=== PATIENT | male | born 1950 | race Caucasian/White ===

== ENCOUNTER 2025-01-13 03:46 | Observation (INO) | payer MEDICARE, SELFPAY ==
[2025-01-12 22:00] VITALS: BP 160/95
[2025-01-12 22:50] VITALS: BP 145/81
[2025-01-12 22:57] VITALS: BMI 24.4
[2025-01-12 23:00] VITALS: BP 122/80
[2025-01-12 23:19] LABS: Hematocrit 39.7 % (39.0-52.0); Hemoglobin 13.7 g/dL (13.0-18.0); Mean Corp Hgb Conc. 34.5 g/dL (33.0-37.0); Mean Corpuscular Volume 93.2 fL (80.0-94.0); Nucleated Red Blood Cells % 0 % (-); Platelet Count 178 10^3/uL (130-400); Red Cell Dist. Width 12.5 % (11.5-14.5)
--- NOTE | 2025-01-12 23:24 | ED.GENMED ---
History of Present Illness
General
Chief Complaint: Cardiac Symptoms
Source: patient
Exam Limitations: none
Time Seen by Provider: 01/12/25 23:00
Nursing documentation reviewed up to this point in time: agreed with
History of Present Illness
History of Present Illness:
The patient is a 74-year-old male with a history of hypertension, hyperlipidemia, who presents with palpitations that began tonight around 8:30 PM while watching a movie. He describes the sensation as a rapid and irregular heartbeat with an
estimated rate of 140 beats per minute, noted on his personal blood pressure monitor, which also recorded a blood pressure of 128/80 mmHg. The episode lasted until his arrival at the emergency department, where it began to slow down. This is the
second occurrence, with the first episode happening about six months ago during physical exertion on a hot day. The patient reports mild chest discomfort, described as central and not radiating, without associated symptoms of dizziness,
lightheadedness, nausea, or diaphoresis. No significant shortness of breath or other respiratory symptoms were noted.
He admits to mild seasonal allergies which are common this time of the year but no significant cough no shortness of breath, no fever no chills. Has not been taking anything for seasonal allergies.
Specifically, denies antihistamine nor decongestant use.
No recent travel. No leg pain or swelling. Weight has been stable.
His daily medications include: Metoprolol succinate 100 mg daily, valsartan HCTZ 80/12.5 once daily. He had been maintained on atorvastatin 20 mg daily but stopped this a few months ago and transitioned to red yeast rice. He is scheduled for
fasting blood work next week with his PCP, Dr. Butcher. He stopped atorvastatin due to intermittent joint aches. He admits that joint aches persist despite stopping atorvastatin. He believes he has osteoarthritis.
He denies drug use. Non-smoker. He does drink alcohol, a couple of beers per day. Denies increased alcohol consumption.
Past History
Past History
ED Past Medical History: HTN and Hypercholesterolemia
ED Past Surgical History: Other (Hernia repair; cataract extraction)
Social History
Tobacco: Non-smoker
Alcohol: Daily (A couple of beers per day)
Drug: None
Personal:
Living: with family
Employment: Retired
Family History
Family History: Other (Father with history of stroke in his 70s. Mother with history of 'heart issues' but unsure as to specifics.)
Phy Exam
Physical Exam
Physical Exam:
GENERAL: 74-year-old gentleman appears his stated age, bright and alert, pleasant, easily communicative and in no acute distress. Accompanied by his son.
EYE: anicteric
NECK: Supple, nontender, no meningismus, no significant adenopathy. No JVD.
ENT: oral mucosa is moist. No rhinorrhea.
CARDIAC: Regular rate and rhythm. no murmur. No rub.
LUNGS: Clear breath sounds bilaterally, no acute respiratory distress, no wheezes/rales/rhonchi
ABDOMEN: Soft, nondistended, without focal tenderness, no r/g, no cvat. normoactive BS.
NEUROLOGICAL: Alert and oriented x3, no focal neuro deficits. Gait is glover and steady.
SKIN: Warm and dry, normal color, skin intact. No rash.
MUSCULOSKELETAL: No C/C/E. peripheral pulses are full and equal b/l. No palpable tenderness.
PSYCH: Normal and appropriate interaction.
Scores
Heart Score for Chest Pain Patients
STEMI patient?: No
History: Slightly or Non-Suspicious
ECG: Normal
Age: >/= 65 years
Risk Factors: 1 or 2 Risk Factors
Troponin: >1 - <3 x Normal Limit
Heart Score for Chest Pain Patients: 4
Heart Score Risk: 20.3% MACE over next 6 weeks
Course
Orders/Labs/Results
Orders:
Orders
01/12/25 22:03
ECG [Electrocardiogram (*1)] Urgent
Reason for Study: Tachycardia
01/12/25 22:04
EKG- Treatment ONCE
01/12/25 23:08
Complete Blood Count/With Diff Urgent
Comprehensive Metabolic Panel Urgent
TSH Reflex To Free T4 Urgent
Troponin I Urgent
01/13/25 00:25
EKG- Treatment ONCE
01/13/25 00:26
Potassium Chloride [KCl] 20 meq PO NOW STA
01/13/25 01:00
Electrocardiogram (*1) Urgent
Reason for Study: Chest Pain
01/13/25 01:01
Troponin I Urgent
Abnormal Lab Results
01/12/25 01/13/25
23:08 01:01
RBC 4.26 L 10^6/uL
(4.70-6.10)
MCH 32.2 H pg
(27.0-31.0)
Monocytes % 9.7 H %
(1.7-9.3)
Eosinophils % 6.1 H %
(0-6)
Chloride 108 H mmol/L
(98-107)
BUN 24 H mg/dl
(9-20)
Glucose 135 H mg/dl
(70-99)
Troponin I 0.041 H* D ng/ml
Total Protein 6.1 L g/dl
(6.3-8.2)
01/12/25 23:08
01/12/25 23:08
Vital Signs
Initial and Last Documented VS:
Initial Vital Signs
Temp Pulse Resp BP Pulse Ox
98 F 100 20 160/95 97
01/12/25 22:00 01/12/25 22:00 01/12/25 22:00 01/12/25 22:00 01/12/25 22:00
Last Documented Vital Signs
Temp Pulse Resp BP Pulse Ox
98 F 74 16 145/87 96
01/12/25 22:00 01/13/25 01:45 01/13/25 01:45 01/13/25 01:00 01/13/25 01:45
MDM/Problems Addressed
Differential Diagnosis Includes:
The Differential Diagnosis includes, in no particular order and is not limited to:
1. Atrial fibrillation
2. Supraventricular tachycardia
3. Ventricular tachycardia
4. Hyperthyroidism
5. Anxiety-related palpitations
6. Electrolyte imbalance
7. Medication-induced tachycardia
8. Coronary artery disease
9. Congestive heart failure
10. Cardiomyopathy
MDM/Problems Addressed:
Acute:
- Palpitations
- Rapid heartbeat
- Chest discomfort
Chronic:
- Hypertension
- Hyperlipidemia
EKG upon arrival shows normal sinus rhythm in the 90's, no acute ST-T wave abnormalities. Unchanged from previous EKG 2019 save for heart rate has increased from 50 to 92.
Patient states his heart rate generally runs in the 60s.
During my initial evaluation, social welfare research worker continues to show normal sinus rhythm, initially in the 80s, drifting down to the 60s. No pauses nor arrhythmia noted.
I am concerned for an episode of tacky arrhythmia, perhaps an episode of A-fib which resolved just prior to arrival.
1. Continue cardiac monitoring, will check blood work including thyroid function and continue to monitor vital signs during the emergency department stay.
2. Refer the patient to a arabic linguist for further evaluation.
3. Will likely require echocardiogram and a continuous heart rhythm monitor (like a Holter or event monitor) to observe for arrhythmias.
4. Discuss with the patient the importance of controlling LDL cholesterol levels, aiming for a goal under 80 mg/dL, given the family history of cardiovascular disease.
*Pulse Oximetry
SaO2: 97
Oxygen Mode of Delivery: Room air
Patient hypoxic: no
*EKG
Interpreted by ED Provider?: Yes
Interpretation: normal
Comparison EKG: changes noted (Heart rate has increased from 52 to now 92)
Rate: normal
Rhythm: sinus
[place]: normal axis
Interval: normal interval
QRS Pattern: normal QRS
Ischemia: no ischemia
*Lead Atg Developer Interpretation
Rate: normal
Interpretation: normal
Rhythm: sinus
*Critical Care Note
Total Time (30-74mins, 75-104mins- exclusive of procedures): Not Applicable
Update Note
Update Note:
00:20
Patient remains asymptomatic.
Monitor shows normal sinus rhythm in the 60s with occasional PVC.
Labs thus far unremarkable save for borderline low potassium of 3.6.
Troponin 0.03.
With complaints of chest discomfort with palpitations/rapid heartbeat, must consider tachycardia/rate related anginal chest pain.
Will replete potassium with an oral dose of K. Dur.
Will continue social welfare research worker.
Will plan to repeat troponin and EKG at 1 AM. If trending up, we will plan to admit for continued cardiac monitoring and further cardiac evaluation.
01:00
Troponin trending up to now 0.041. As such, significant concern for ACS.
Will give aspirin, 325 mg chewable.
Monitor continues to show normal sinus rhythm with occasional PACs. No tacky arrhythmia. He remains chest pain-free.
Will plan to admit to hospitalist service for continued cardiac monitoring, continue to trend troponin. Cardiology consult in the a.m.
ED Attending Note
-
Portions of this chart may have been created with voice recognition software.� Occasional wrong word or��sound alike� substitutions may have occurred due to the inherent limitations of voice recognition software.
Discharge Plan
Departure
Patient Disposition: Admit
Date of Disposition: 01/13/25
Time of Disposition: 02:09
Admit to: Telemetry
Admit to doctor: Yomi
Presentation/result/management discussed w/ accepting MD/DO: Hospitalist
Condition: Fair
Discharge Problem:
Heart palpitations, chest pain r/o ACS, Elevated troponin
Prescriptions:
No Action
atorvastatin 10 MG tablet
10 mg PO DAILY
metoprolol succinate 100 MG tablet extended release 24 hr
100 mg PO DAILY
Referrals:
Reed Butcher MD [Family Provider, Family Practice]
Interventions
Interventions:
*Risk Screen - Suicide Last Done: 01/12/25 22:51
*General Assessment Last Done: 01/12/25 22:00
*ED- Fall Risk Assessment Last Done: 01/12/25 22:51
*ED COVID-19 Vaccine History Last Done: 01/12/25 22:51
*ED Influenza Vaccine History Last Done: 01/12/25 22:51
ED- Pulmonary Assessment Last Done: 01/12/25 22:51
ED- Cardiac Assessment Last Done: 01/12/25 22:51
Discharge Date and Time
Print Language: ICELANDIC
[2025-01-12 23:41] LABS: ALT (SGPT) 24 U/L (0-50); AST (SGOT) 34 U/L (17-59); Albumin 4.1 g/dl (3.5-5.0); Alkaline Phosphatase 63 U/L (38-126); Blood Urea Nitrogen 24 mg/dl (9-20); Calcium 9.1 mg/dl (8.4-10.2); Carbon Dioxide 30 mmol/L (22-30); Chloride 108 mmol/L (98-107); Estimated Creatinine Clearance 81 ml/min; Glucose 135 mg/dl (70-99); Potassium 3.6 mmol/L (3.5-5.1); Sodium 143 mmol/L (135-145); Total Protein 6.1 g/dl (6.3-8.2); eGFR > 60.00
[2025-01-12 23:53] LABS: Troponin I 0.030 ng/ml
[2025-01-13] VITALS (12 sets, daily range): BP systolic 137–166; BP diastolic 69–87; PULSE 61–66; BMI 24.1
[2025-01-13] MEDS: KCL 20 MEQ PO (00:38)
[2025-01-13 02:00] LABS: Troponin I 0.041 ng/ml
[2025-01-13] MEDS: LOW STRENGTH ASPIRIN 324 MG PO (02:16)
--- NOTE | 2025-01-13 02:50 | HPS.HSE ---
Family Physician
-
Family Physician: Reed Butcher
Chief Complaint
-
Palpitations
History of Present Illness
Patient is a 74y M with PMH significant for hypertension who presents to ED complaining of palpitations. Patient states that he was sitting watching TV this evening when he noted racing heartbeat and an uncomfortable 'sensation' in his chest.
No SOB, N/V, diaphoresis, etc. He checked his BP at home - which he does regularly - and noted that his pulse read 148 bpm. He was evaluated by his daughter who is a nurse who confirmed tachycardia and reported an irregular pulse. He presented to
the ED for further evaluation and treatment. By the time patient arrived at the ED, his symptoms had resolved. He states that they lasted for about 1 1/2 - 2 hours total.
Patient reports similar episode about 6 months ago. This occurred during exertion and heat exposure and lasted only several minutes before resolving. He did not seek medical attention at that time.
At the time of my examination, patient is resting comfortably and has no complaints.
Medical History
Past Medical History
Past Medical History: Reports Other
Additional Past Medical History:
Hypertension
Past Surgical History: Reports Other
Additional Past Surgical History:
Hernia Repair
Cataracts
Vasectomy
Social History
Tobacco: Former Smoker (Quit smoking 40 years ago.)
Alcohol: Daily (1-2 beers daily)
Drug: None
Family History
Family History: Other (Father: CVA)
Allergies / Home Medications
Allergies reflects when Allergies were last updated in [employer].
Home Medications with original date entered in [employer]
Allergy/Medication List:
Allergies
Allergy/AdvReac Type Severity Reaction Status Date / Time
No Known Allergies Allergy Verified 01/12/25 22:00
Home Medications
metoprolol succinate 100 mg tablet,extended release 24 hr 100 mg PO DAILY 01/13/25
red yeast rice 600 mg capsule 600 mg PO DAILY 01/13/25
valsartan 80 mg-hydrochlorothiazide 12.5 mg tablet 1 tab PO DAILY 01/13/25
Review of Systems
-
History Source: Patient
A 12 point ROS was completed and negative except as noted: Yes
Constitutional: Denies Fever or Chills
Respiratory: Denies Cough or Trouble Breathing
Cardiac: Reports Chest Pain and Palpitations; Denies Diaphoresis or Syncope
Abdomen/GI: Denies Abdominal Pain, Nausea, Vomiting or Diarrhea
: Denies Dysuria or Flank Pain
Musculoskeletal: Denies Joint Pain or Edema
Neurological: Denies Dizzy or Headache
Psych: Denies Depression or Anxiety
Physical Exam
Vital Signs
Vital Signs
Temp Pulse Resp BP Pulse Ox
98 F 64 14 145/80 97
01/12/25 22:00 01/13/25 02:30 01/13/25 02:30 01/13/25 02:00 01/13/25 02:30
Physical Exam
General: Other (74y M in no distress.)
HEENT: Moist mucous membranes and PERRLA
Respiratory: Clear; No Wheezes, Rales or Rhonchi
Cardiac: S1/S2 and Regular Rhythm; No Murmur
GI: Soft, Non Tender, Non Distended and Normal Bowel Sounds
Musculoskeletal: No Clubbing, No Cyanosis and No Edema
Neuro: AO x 3
Laboratory Results
-
01/12/25 23:08
01/12/25 23:08
Laboratory Results
Total Bilirubin 0.4 mg/dl (0.2-1.3) 01/12/25 23:08
AST 34 U/L (17-59) 01/12/25 23:08
ALT 24 U/L (0-50) 01/12/25 23:08
Alkaline Phosphatase 63 U/L (38-126) 10/22/25 23:08
Troponin I 0.041 ng/ml H* D 01/13/25 01:01
Impression/Plan
-
A/P: Patient is a 74y M with PMH significant for hypertension who presents to ED complaining of chest discomfort and palpitations.
Palpitations
- Observe overnight for further evaluation and treatment.
- ? PA-Fib versus other SVT.
- Monitor on tele overnight.
- Continue usual Toprol dose for now.
- Cardiology evaluation for additional recommendations.
- May benefit from ambulatory monitoring if no arrhythmia noted during stay.
Abnormal Troponin - Unknown Type
- Suspect this is non-ischemic myocardial injury due to tachyarrhythmia.
- Cannot rule out ACS however given reported chest 'discomfort' as well.
- ASA daily for now.
- Follow troponin to peak.
- Cardiology evaluation as noted above.
Benign Hypertension
- Stable. Continue current med regimen.
DVT Prophylaxis: Lovenox
Code Status: Full
--- NOTE | 2025-01-13 04:48 | PTCARENOTE ---
Pt admitted from ED to room 2245 at this time, aaox3, denies cp, palpations or dizziness. SR on tele monitor, HR 60's. Trending trops q6hr, ortho VS obtained and documented, EKG obtained upon arrival on the unit. Pt updated on POC and oriented to
unit. Call light within reach.
[2025-01-13 04:56] LABS: Hematocrit 37.7 % (39.0-52.0); Hemoglobin 13.0 g/dL (13.0-18.0); Mean Corp Hgb Conc. 34.5 g/dL (33.0-37.0); Mean Corpuscular Volume 94.5 fL (80.0-94.0); Platelet Count 157 10^3/uL (130-400); Red Cell Dist. Width 12.3 % (11.5-14.5)
[2025-01-13 05:22] LABS: Blood Urea Nitrogen 26 mg/dl (9-20); Calcium 8.7 mg/dl (8.4-10.2); Carbon Dioxide 28 mmol/L (22-30); Chloride 110 mmol/L (98-107); Estimated Creatinine Clearance 93 ml/min; Glucose 145 mg/dl (70-99); HDL Cholesterol 58 mg/dl; LDL Cholesterol, Calculated 119 mg/dl; Potassium 3.8 mmol/L (3.5-5.1); Sodium 142 mmol/L (135-145); Very Low Density Lipoprotein 14 mg/dl (0-30); eGFR > 60.00
[2025-01-13 05:33] LABS: Troponin I 0.051 ng/ml
--- NOTE | 2025-01-13 07:44 | W.PN.HOSP.TC ---
Today's Communication/Plan
-
Discharge today
Assessment / Plan
Assessment / Plan
Physical Exam
General: Not in acute distress
HEENT: Moist mucous membranes
Respiratory: Clear to Auscultation Bilaterally
Cardiac: S1/S2 and Regular Rhythm
GI: Soft, Non Tender, Non Distended and Normal Bowel Sounds
Musculoskeletal: No Cyanosis and No Edema
Neuro: AO x 3
Assessment/Plan
74 y/o male with past medical history significant for hypertension who presented to [facility] emergency room complaining of palpitations. Patient stated that he was sitting watching TV on 01/12/25 evening when he noted racing heartbeat and an
uncomfortable 'sensation' in his chest. He denied any shortness of breath, nausea/vomiting, diaphoresis, etc. He checked his vital signs at home - which he does regularly - and noted that his pulse read 148 bpm. He was evaluated by his daughter who
is a nurse who confirmed tachycardia and reported an irregular pulse. He presented to the ED for further evaluation and treatment. By the time patient arrived at the ED, his symptoms had resolved. He states that they lasted for about 1 1/2 - 2
hours total. Patient reported a similar episode about 6 months prior. This occurred during exertion and heat exposure and lasted only several minutes before resolving. He did not seek medical attention at that time.
Palpitations likely Secondary to Supraventricular Tachycardia
- Observe overnight for further evaluation and treatment.
- Continue usual Toprol dose for now.
- Cardiology evaluation for additional recommendations.
- Echo results noted
- Outpatient cardiology follow-up in 2 to 4 weeks for stress testing and outpatient ambulatory monitoring to be set up outpatient
Elevated Troponins Likely Secondary to nonischemic myocardial injury due to SVT
Benign Hypertension
- Stable. Continue current med regimen.
DVT Prophylaxis: Lovenox
Code Status: Full
More than 30 minutes spent in discharge including
Final examination of the patient
Summarizing hospital stay
Instructions for continuing care to all relevant caregivers
Preparation of discharge records, prescriptions, and referral forms
Total time spent (in minutes): 37
Anticipated Discharge: Today
Subjective/Interval History
-
Date of Service: January 13, 2025
Patient was seen and examined. He reported that his presenting symptoms resolved and that he wanted to go home today. He denied any other new symptoms or complaints.
Objective Data
-
Labs:
Laboratory Results
01/12/25 01/13/25
23:08 04:41
WBC 5.6 4.8
Hgb 13.7 13.0
Hct 39.7 37.7 L
Plt Count 178 157
Sodium 143 142
Potassium 3.6 3.8
Chloride 108 H 110 H
Carbon Dioxide 30 28
BUN 24 H 26 H
Creatinine 0.8 0.7
Glucose 135 H 145 H
Calcium 9.1 8.7
Total Bilirubin 0.4
AST 34
ALT 24
Alkaline Phosphatase 63
Vital Signs:
Vital Signs
Temp Pulse Resp BP Pulse Ox
97.4 F 60 20 147/81 98
01/13/25 07:22 01/13/25 06:30 01/13/25 07:22 01/13/25 04:30 01/13/25 07:22
I&O
01/12/25 01/13/25 01/14/25
06:59 06:59 06:59
Intake Total 240 / 240
Balance 240 / 240
--- NOTE | 2025-01-13 07:59 | CON.CAR ---
Addendum entered and electronically signed by Eric Thorpe MD 01/13/25 11:00:
I saw and evaluated the patient, and I provided the substantive portion of the medical decision making.
I reviewed and agree with the note by Dr Corrigan and it accurately reflects our care.
I personally performed the medical decision making of the this encounter and my assessment and plan is below:
74-year-old who presented with likely SVT. He has mildly elevated troponins likely nonischemic myocardial injury due to SVT. He exercises the majority of the days of the week on a treadmill for 35 minutes without any limiting cardiovascular
symptoms including chest pain. We discussed further eval with echocardiogram continuing biomedical scientist and trending troponins. If for the remainder of the day is unremarkable; discharge home with outpatient follow-up for stress testing and
monitor.
Original Note:
Consultation
Consultation Request
Date/Time Consultation Requested: 01/13/2025; 04:07
Date/Time Consultation Performed: 01/13/2025; 08:00
Requesting Provider: Dr. Xavier Celaya
Performing Provider: Dr. Eric Thorpe; Dr. Kye Corrigan
Reason for Consultation: palpitations + SVT
Medical History
-
Chief Complaint: palpitations
History of Present Illness:
74 yo M PMH HTN, HLD p/w palpitations that began last night while watching a movie.
He felt rapid, irregular heart beat at 6:30pm and then at 9pm he went to his daughter (who lives in same house complex) and HR was measured to 140 bpm with BP 128/80 at home. This prompted him to present to the ED. By the time he arrived, the
symptoms were improving. The total duration of the episode may have been 3-4 hours.
He endorses some chest discomfort and some dyspnea during the event that have both resolved by this morning.
He denies lightheadedness, syncope.
Social hx remarkable for EtOH use (12 beers/week), he last consumed a beer around 5:30pm (1 hr prior to onset of palpitations)
He had an episode of palpitations in the setting of exertion in the heat 6 months ago that last several minutes and resolved when he went back indoors.
He does not recall any prior episodes of palpitations.
PMH only HTN and HLD. Denies hx of stroke, TIA, vascular disease, diabetes mellitus, or heart failure
Other ROS: denies headache, abdominal pain, focal weakness, dysuria, back pain.
Past Medical History
Past Medical History: HTN and Hypercholesterolemia
Past Surgical History: Other (Hernia repair; cataract extraction)
Social History
Tobacco: Former Smoker (quit 40 years ago)
Alcohol: Daily (12 beers / week)
Drug: None
Living: With Family
Employment: Retired
Family History
Family History: CAD (father had a 'widowmaker')
Allergies / Home Medications
Allergy/AdvReac Type Severity Reaction Status Date / Time
No Known Allergies Allergy Verified 01/12/25 22:00
�Medication �Instructions �Recorded �Confirmed �Type
metoprolol succinate 100 mg 100 mg PO DAILY 01/13/25 01/13/25 History
tablet,extended release 24 hr
red yeast rice 600 mg capsule 600 mg PO DAILY 01/13/25 01/13/25 History
valsartan 80 1 tab PO DAILY 01/13/25 01/13/25 History
mg-hydrochlorothiazide 12.5 mg
tablet
Review of Systems
-
History Source: Patient
Constitutional: No Symptoms
EENT: No Symptoms
Respiratory: Trouble Breathing
Cardiac: Palpitations
Abdomen/GI: No Symptoms
: No Symptoms
Musculoskeletal: No Symptoms
Neurological: No Symptoms
Physical Exam
Vital Signs
Telemet
Temp Pulse Resp BP Pulse Ox
97.4 F 60 20 147/81 98
01/13/25 07:22 01/13/25 06:30 01/13/25 07:22 01/13/25 04:30 01/13/25 07:22
Telemetry review:
7am PVCs
Otherwise, HR in 60-80s
Lab Results
01/13/25 04:41
01/13/25 04:41
Troponin I 0.051 ng/ml H* 01/13/25 04:41
Troponin 0.041 --> 0.051
TSH 3.45
Cr: 0.7
EKG 01/12/2025; 22:03
Vent. Rate : 93 BPM Atrial Rate : 93 BPM
P-R Int : 158 ms QRS Dur : 92 ms
QT Int : 358 ms P-R-T Axes : 35 -38 24 degrees
QTcB Int : 445 ms
NORMAL SINUS RHYTHM
LEFT AXIS DEVIATION
ABNORMAL ECG
WHEN COMPARED WITH ECG OF 23-Apr-2018 11:30,
VENT. RATE HAS INCREASED by 41 bpm
EKG 01/13/2025; 01:00
Vent. Rate : 62 BPM Atrial Rate : 62 BPM
P-R Int : 172 ms QRS Dur : 96 ms
QT Int : 430 ms P-R-T Axes : 34 -24 14 degrees
QTcB Int : 436 ms
NORMAL SINUS RHYTHM
MINIMAL VOLTAGE CRITERIA FOR LVH, MAY BE NORMAL VARIANT ( R in aVL )
BORDERLINE ECG
WHEN COMPARED WITH ECG OF 12-Jan-2025 22:07,
VENT. RATE HAS DECREASED by 31 bpm
EKG 01/13/2025; 06:00
Vent. Rate : 62 BPM Atrial Rate : 62 BPM
P-R Int : 186 ms QRS Dur : 92 ms
QT Int : 428 ms P-R-T Axes : 53 -18 40 degrees
QTcB Int : 434 ms
NORMAL SINUS RHYTHM
NORMAL ECG
WHEN COMPARED WITH ECG OF 13-Jan-2025 01:11,
NO SIGNIFICANT CHANGE WAS FOUND
Physical Exam
General: Comfortable
HEENT: Normocephalic
Respiratory: Clear
Cardiac: Regular Rhythm and Other (no murmurs on my exam)
GI: Soft, Non Tender and Non Distended
Genito-urinary: No Costovertebral Tender
Musculoskeletal: No Edema and Other (SCDs present)
Skin: Warm
Neuro: AO x 3, No Motor Deficits and Nonfocal/Grossly Intact
Psych: Calm
Impression / Plan
-
In summary, 74 yo M PMH HTN, HLD p/w palpitations for 3-4 hours duration that improved spontaneously by the time he presented to ED c/f a tachyarrhythmia
Tachyarrhythmia at home: SVT vs. atrial fibrillation vs. other
- At home, tachycardia to 140s but hemodynamically stable
- In hospital, multiple EKGs showed NSR and telemetry review only detected PVCs; HR in 60s-80s
- Chest discomfort with a rising troponin (0.041 -> 0.051) likely attributed to the tachycardia
- Likely trigger could be EtOH use (12 beers / week)
- Electrolytes are largely within normal limits
Plan:
- TTE to evaluate for any structural issues
- Cantilever Crane Operator to reduce EtOH intake
- Ambulatory Holter monitor to be set up during outpatient follow-up
- Cardiac stress test to be setup during outpatient follow-up
- Continue to monitor telemetry and VS while admitted
- Recommendations are not final until discussed with Dr. Thorpe, cardiology attg
Nonischemic myocardial injury
- Elevated troponin that has risen from 0.041 to 0.051
- However, no EKG changes
- This could be demand-ischemia from the tachy-arrhythmia
Plan:
- Trend troponin
HLD
- He's not currently on statin and is 'experimenting with red yeast rice' for the past few months because he experienced joint pain with statin
- lipid panel this admission within normal limits
- He's has a PCP outpatient appt next week to review whether he should go back on a statin
HTN
- BP in 140s to 150s systolic; 70s to 80s diastolic
- Continue metoprolol succinate and valsartan-HCTZ
- Monitor VS
[2025-01-13] MEDS: TOPROL XL 100 MG PO (08:48)
[2025-01-13] MEDS: LOW STRENGTH ASPIRIN 81 MG PO (08:49)
[2025-01-13] MEDS: DIOVAN 80 MG PO (08:49)
[2025-01-13] MEDS: ORETIC 12.5 MG PO (08:49)
[2025-01-13 10:44] LABS: Troponin I 0.034 ng/ml
--- NOTE | 2025-01-13 14:39 | CM ---
Reviewed chart. Met [facility] Mr. Morrissey to review discharge plans. He states prior to admission he resides with his spouse, daughter and son-in-law in a two story home with two steps to enter. He states his full bath room and bedroom are on the first
floor. He states prior to admission he was independent with ambulation and adls. He states he does not have any DME in the home. He states he has a prescription plan and uses [facility]. The discharge plan os to return home with his spouse ,
daughter and son-in-law when medically stable.
--- NOTE | 2025-01-13 17:23 | PTCARENOTE ---
Pt denied any discomfort. Echo done. Telemetry showed rare episode of bigeminy. Pt seen by . Telemetry and IV device removed. Discharge instructions reviewed with pt regarding medications (none new), reporting cares and concerns and
follow up plan for stress test and holter monitor. Excellent understanding verbalized. Pt ambulated with RN and was discharged to home.
== END 2025-01-13 17:26 | disposition home or self-care (01) ==
LOC: IVU 03:46
PROVIDERS: ADMITTING PHYSICIAN Hospitalist; ATTENDING PHYSICIAN Hospitalist; EMERGENCY PHYSICIAN Emergency Medicine; FAMILY PHYSICIAN Family Medicine; OTHER PHYSICIAN Internal Medicine Cardiovascular Disease
DX: R00.2 Palpitations (principal); I5A Non-ischemic myocardial injury (non-traumatic); I10 Essential (primary) hypertension; E78.00 Pure hypercholesterolemia, unspecified; Z79.82 Long term (current) use of aspirin; Z79.899 Other long term (current) drug therapy; Z87.891 Personal history of nicotine dependence
CPT/HCPCS: 80048; 80053; 80061; 84443; 84484; 85025; 85027; 93005; 93306; 99285; G0378

== ENCOUNTER → 2025-02-25 07:41 | Outpatient (REF) | payer MEDICARE, SELFPAY | LOC: HWRCS 07:41 | PROVIDERS: ATTENDING PHYSICIAN Nurse Practitioner; FAMILY PHYSICIAN Family Medicine | DX: I5A Non-ischemic myocardial injury (non-traumatic) (principal) | CPT/HCPCS: 78452; 93017; A9500 ==